=== PATIENT | male | born 2000 | race African-American/Black ===

== ENCOUNTER 2020-07-04 20:32 | Emergency (ER) | payer OTHER, SELFPAY ==
--- NOTE | ~2020-07-04 | CT_ITS ---
EXAMINATION: CT brain wo con EXAM DATE: 07/04/2020 20:57 INDICATION: Severe headache. TECHNIQUE: Spiral CT of the head was performed without contrast. Axial, coronal and sagittal images were reviewed. The dose-length product (DLP) for this examination was 983.67 mGy-cm. The exposure w as tailored according to patient size, and iterative reconstruction (ASIR) was used as additional dos e reduction technique. There is no prior study for comparison. 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 There is no acute intraparenchymal hemorrhage. No evidence of intraparenchymal brain mass lesion. No evidence of acute infarction. There is no mass effect or midline shift. The ventri cles are normal in size. There are no extra-axial collections. There are no acute calvarial fractur es. The orbits are unremarkable. Soft tissue is unremarkable. Couple of small right maxillary sinus mucous retention cysts. IMPRESSION: 1. No acute intracranial findings. Reviewed, dictated and finalized at location G.
[2020-07-04 20:35] VITALS: BP 112/82; PULSE 81; RESP 16; TEMP 36.1; O2SAT 97
--- NOTE | 2020-07-04 20:46 | PC.NURSE ---
Patient taken to CT from triage at this time.
[2020-07-04] MEDS: SODIUM CHLORIDE 0.9% IV 1,000 ML 999 ML IV CONT ×2 (21:12→23:05)
[2020-07-04] MEDS: PROCHLORPERAZINE EDISYLATE 10 MG/2 ML VIAL IV PUSH (21:12)
[2020-07-04] MEDS: KETOROLAC 30 MG/ML VIAL (*BKC) IV PUSH (21:13)
[2020-07-04] MEDS: diphenhydrAMINE HCl INJ 50 MG/ML VIAL IV PUSH (21:13)
[2020-07-04 21:27] LABS: Basophils Absolute Auto 0.1 K/mm3 (0.0-0.1); Basophils Percent Auto 0.7 % (0.2-1.2); Eosinophils Absolute Auto 0.1 K/mm3 (0-0.3); Eosinophils Percent Auto 0.6 % (0-4.4); Hematocrit 41.9 % (42.0-52.0); Hemoglobin 14.7 g/dL (14.0-18.0); Immature Granulocyte Absolute 0.04 K/mm3 (0.00-0.031); Immature Granulocyte Percent A 0.4 % (0-0.5); Lymphocytes Absolute Auto 2.78 K/mm3 (0.9-3.2); Lymphocytes Percent Auto 26.3 % (18.3-44.2); Mean Corpuscular HGB Conc 35.1 g/dl (32-36); Mean Corpuscular Hemoglobin 32.5 pg (26-34); Mean Corpuscular Volume 92.5 fl (80-100); Mean Platelet Volume 9.9 fl (7.4-10.4); Monocytes Absolute Auto 0.9 K/mm3 (0.1-0.6); Monocytes Percent Auto 8.1 % (2.6-8.5); Neutrophils Absolute Auto 6.8 K/mm3 (1.3-6.7); Neutrophils Percent Auto 63.9 % (45.5-73.1); Platelet Count Result 160 k/mm3 (150-375); Red Blood Count 4.53 M/mm3 (4.6-6.20); Red Cell Distribution Width 12.4 % (11.5-14.5); White Blood Count 10.6 K/mm3 (4.5-10.0)
[2020-07-04 21:41] LABS: Lactic Acid Reflex 2.9 mmol/L (0.7-2.1)
--- NOTE | 2020-07-04 22:18 | PC.NURSE ---
Patient aware of need for urine specimen. Patient unable to provide a sample at this time. Patient refusing straight cath.
[2020-07-04 22:52] VITALS: BP 128/89; PULSE 103; RESP 14; O2SAT 100
[2020-07-04 23:16] LABS: Alanine Aminotransferase 19 U/L (4-50); Albumin Level 4.2 g/dL (3.5-5.1); Alkaline Phosphatase 42 U/L (38-126); Anion Gap 4 mmol/L (8-16); Aspartate Amino Transferase 25 U/L (17-59); Bilirubin,Total 0.6 mg/dL (0.2-1.3); Blood Urea Nitrogen 12 mg/dL (9-20); Calcium 9.1 mg/dL (8.4-10.2); Carbon Dioxide 29 mmol/L (22-30); Chloride 104 mmol/L (98-107); Estimated CRCL calculation 105 ml/min; Estimated Glomerular Filt Rate > 60; Glucose 101 mg/dL (75-110); Lipase 114 U/L (23-300); Potassium 4.6 mmol/L (3.4-5.0); Sodium 137 mmol/L (137-145)
--- NOTE | 2020-07-04 23:26 | PC.NURSE ---
pt ambulated to restroom w/ no difficulties to give us urine sample at this time.
[2020-07-05 00:25] LABS: Reflex Lactic Acid Yes or No Add Lactic
[2020-07-05 00:53] LABS: Add Urine Microscopic? YES; Appearance Urine Clear (Clear); Bilirubin Urine Negative (Negative); Blood Urine Negative (Negative); Color Urine Yellow (Yellow); Glucose Urine UA Negative (Negative); Ketones Urine Negative (Negative); Leukocyte Esterase Ur Negative LEU/UL (Negative); Nitrate Urine Negative (Negative); Protein Urine 1+ mg/dL (Negative); RBC Urine 0-2 /hpf (0-2); Specific Grav Ur 1.015 (1.001-1.035); Urobilinogen Urine Negative mg/dL (<2.0); WBC Urine 0-3 /hpf
[2020-07-05 00:58] LABS: Lactic Acid 1.4 mmol/L (0.7-2.1)
[2020-07-05 01:04] VITALS: BP 122/75; PULSE 97; RESP 16; O2SAT 100
--- NOTE | 2020-07-05 01:27 | ED.GENADULT ---
HPI - General Adult General Chief complaint: Headache Stated complaint: altered loc Time Seen by Provider: 07/04/20 20:39 History of Present Illness HPI narrative: Patient 19-year-old gentleman who presents the emergency department with chief complaint of headache. Patient reports that he has had nausea vomiting and diarrhea today and then afterwards developed a severe headache. The patient states that the light was bothering his eyes reports that his head was pounding reports it was not improved by anything or is it worsened by anything. Related Data Allergies Allergy/AdvReac Type Severity Reaction Status Date / Time No Known Allergies Allergy Verified 07/04/20 20:35 Review of Systems Review of Systems: Narrative: A 10 system review of systems was completed on the patient and is negative except for what is stated in the HPI. Nursing and ancillary documentation was reviewed. [facility] Social History Social History Gender identity (if verbalized by the patient): Male Exam Narrative: Exam Narrative: GENERAL: Well-appearing, well-nourished, and in no acute distress. HEAD: Normocephalic, atraumatic. EYES: PERRLA and EOMI. ENT: Nares clear, no rhinorrhea or epistaxis. Mucous membranes moist. NECK: Supple. CHEST: Clear to auscultation. No respiratory distress. HEART: Regular rate and rhythm. No murmur heard. Normal peripheral pulses. ABDOMEN: Soft, mild tenderness to palpation the left lower quadrant, nondistended, normal active bowel sounds. EXTREMITIES: Normal range of motion. No edema. SKIN: Warm, dry, no rash. NEURO: No focal deficits. Alert and oriented x3. PSYCH: Normal mood and affect. Course Course Emergency Course: Patient received IV hydration in the emergency department and is received treatment for his headache. The patient is feeling much better at this time Vital Signs Vital signs: Vital Signs Temperature 36.1 C L 07/04/20 20:35 Pulse Rate 81 07/04/20 20:35 Respiratory Rate 16 07/04/20 20:35 Blood Pressure 112/82 07/04/20 20:35 Pulse Oximetry 97 07/04/20 20:35 Temperature 36.1 C L 07/04/20 20:35 Pulse Rate 97 07/05/20 01:04 Respiratory Rate 16 07/05/20 01:04 Blood Pressure 122/75 07/05/20 01:04 Pulse Oximetry 100 07/05/20 01:04 Medical Decision Making Vital Signs Vital Signs: Vital Signs Temperature 36.1 C L 07/04/20 20:35 Pulse Rate 81 07/04/20 20:35 Respiratory Rate 16 07/04/20 20:35 Blood Pressure 112/82 07/04/20 20:35 Pulse Oximetry 97 07/04/20 20:35 Temperature 36.1 C L 07/04/20 20:35 Pulse Rate 97 07/05/20 01:04 Respiratory Rate 16 07/05/20 01:04 Blood Pressure 122/75 07/05/20 01:04 Pulse Oximetry 100 07/05/20 01:04 Lab Data Result diagrams: 07/04/20 21:20 07/04/20 22:34 Labs: Lab Results 07/04/20 07/04/20 07/04/20 Range/Units 21:20 21:20 22:34 WBC 10.6 H (4.5-10.0) K/mm3 RBC 4.53 L (4.6-6.20) M/mm3 Hgb 14.7 (14.0-18.0) g/dL Hct 41.9 L (42.0-52.0) % MCV 92.5 (80-100) fl MCH 32.5 (26-34) pg MCHC 35.1 (32-36) g/dl RDW 12.4 (11.5-14.5) % Plt Count 160 (150-375) k/mm3 MPV 9.9 (7.4-10.4) fl Immature Gran % (Auto) 0.4 (0-0.5) % Neut % (Auto) 63.9 (45.5-73.1) % Lymph % (Auto) 26.3 (18.3-44.2) % Ida % (Auto) 8.1 (2.6-8.5) % Eos % (Auto) 0.6 (0-4.4) % Baso % (Auto) 0.7 (0.2-1.2) % Lymph # (Auto) 2.78 (0.9-3.2) K/mm3 Ida # (Auto) 0.9 H (0.1-0.6) K/mm3 Eos # (Auto) 0.1 (0-0.3) K/mm3 Baso # (Auto) 0.1 (0.0-0.1) K/mm3 Abs Immat Gran (auto) 0.04 H (0.00-0.031) K/mm3 Absolute Neuts (auto) 6.8 H (1.3-6.7) K/mm3 Absolute Nucleated RBC 0.0 (0.0-0.012) K/mm3 Nucleated RBC % 0.0 (0.0-0.2) % Sodium 137 (137-145) mmol/L Potassium 4.6 (3.4-5.0) mmol/L Chloride 104 (98-107) mmol/L Carbon Dioxide
[2020-07-05 02:00] VITALS: BP 123/86; PULSE 94; RESP 18; O2SAT 100
== END 2020-07-05 02:02 | disposition home or self-care (01) ==
PROVIDERS: Emergency Provider Emergency Medicine
DX: R51.9 Headache, unspecified (principal)
CPT/HCPCS: 36415; 70450; 80053; 81001; 83605; 83690; 85025; 96361; 96374; 96375; 99284; J0780; J1200; J1885; J7030